=== PATIENT | female | born 1985 | race Caucasian/White ===

== ENCOUNTER 2016-07-11 06:15 | Inpatient (IN) | payer BC ==
[2016-07-11 07:53] VITALS: BMI 24.6
[2016-07-11] MEDS ORDERED: OXYTOCIN 10 UNIT/ML 1 ML VIAL IM PRN (07:55)
[2016-07-11] MEDS ORDERED: CARBOPROST TROMETHAMINE 250 MCG/ML 1 ML AMP IM PRN (07:55)
[2016-07-11] MEDS ORDERED: LIDOCAINE 1% (PF) 10 MG/ML (30 ML SDV) SQ PRN (07:55)
[2016-07-11] MEDS ORDERED: METHYLERGONOVINE 0.2 MG/ML 1 ML AMP IM PRN (07:55)
[2016-07-11] MEDS ORDERED: TERBUTALINE 1 MG/ML VIAL SQ PRN (07:55)
[2016-07-11 08:11] LABS: Basophils % (A) 0 %; CH 32.8; CHCM 34.9; Eosinophils % (A) 0 %; HCT 35.1 % (34.0-46.0); HDW 2.86; Luc # (Auto) 0.09; Luc % (Auto) 2; Lymphocytes % (A) 17 %; MCH 32.3 pg (25.0-35.0); MCHC 34.1 g/dL (31.0-37.0); MCV 94.7 fL (80.0-100.0); Mean Platelet Volume 7.6; Monocytes # (A) 0.4 k/uL (0-1.0); Monocytes % (A) 6 %; Neutrophils # (A) 4.4 k/uL (1.3-7.7); Neutrophils % (A) 75 %; RBC 3.71 m/uL (3.80-5.40); RDW 13.5 % (11.5-15.5); WBC 5.9 k/uL (3.8-10.6); WBC (Perox) 6.26
[2016-07-11] MEDS: OXYTOCIN 30 UNITS/500 ML NS 30 UNIT in SALINE 1 500ML.BAG IV SCH (08:33)
[2016-07-11] MEDS: LACTATED RINGERS 1,000 ML IV SCH ×2 (08:34→13:01)
--- NOTE | 2016-07-11 09:13 | P.HPOB ---
History of Present Illness H&P Date: 07/11/16 Chief Complaint: 39+ weeks intrauterine , elective induction The patient is a 31-year-old 4 para 3003 admitted at 39-3/7 weeks as established by last menstrual period and confirmed by 9 week ultrasound per she is admitted for elective induction of labor with all signs reassuring and a favorable cervix. Her has been uncomplicated and group B strep status is negative. Obstetrical history: 4 para [id number] term vaginal deliveries without complications. Current statistics are listed above. EDC of 2016 was established by last menstrual period and confirmed by 9 week ultrasound. Laboratory workup demonstrates a blood type of O+ with a negative antibody screen. Rubella status is immune. Remainder of laboratory workup was within normal limits. One hour Glucola was normal and group B strep status is negative. Gynecologic history: is unremarkable with no history of any infections to include STDs. Review of Systems Review of systems is confined to history of present illness. Past Medical History Past Medical History: No Reported History Additional Past Medical History / Comment(s): diet controlled hypoglycemia, borderline hypothyroidism History of Any Multi-Drug Resistant Organisms: None Reported Past Surgical History: Orthopedic Surgery Past Anesthesia/Blood Transfusion Reactions: Postoperative Nausea & Vomiting ( PONV) Past Psychological History: No Psychological Hx Reported Smoking Status: Never smoker - Past Family History Mother Family Medical History: No Reported History Medications and Allergies Home Medications Medication Instructions Recorded Confirmed Type Awd-Ytqx-Qhlox Acid 1 each PO DAILY 07/16/14 07/11/16 History [-U Capsule] Allergies Allergy/AdvReac Type Severity Reaction Status Date / Time No Known Allergies Allergy Verified 07/16/14 06:48 Exam - Vital Signs Vital signs: Vital Signs Temp Pulse Resp BP 07/11/16 07:42 97.6 F 88 18 115/80 Intake and Output 07/10/16 07/11/16 07/11/16 22:59 06:59 14:59 Other: Weight 63.049 kg Patient Weight 07/12/16 06:59 Weight 63.049 kg In general, this is a well-developed, well-nourished white female in no acute distress. Her heart has a regular rhythm and rate without murmur. Her lungs are clear to auscultation bilaterally in all vazquez. Her abdomen is gravid, nondistended, has normal active bowel sounds, is soft, nontender, and without any palpable masses aside from uterine fundus. Her extremities are without any cyanosis, clubbing, or edema and are nontender to palpation bilaterally. Digital cervical examination demonstrates her surgery C approximate 2+ centimeters dilated, 60% effaced, with the vertex in presentation at -2 station. Artificial rupture of membranes is carried out demonstrating clear fluid. Results Result Diagrams: 07/11/16 07:20 Abnormal Lab Results - Last 24 Hours (Table) 07/11/16 Range/Units 07:20 RBC 3.71 L (3.80-5.40) m/uL Assessment and Plan (1) Term Status: Acute Plan: The patient has been admitted for elective induction. She understands the risks and complications of an elective approach to induction including the potentially slightly increased risk for delivery. Pitocin augmentation has been started and she has undergone artificial rupture of membranes breech she will continue to have close maternal and surveillance and expectant management will be practiced. She is a good candidate for either IV or epidural analgesia, whichever she may choose.
[2016-07-11] MEDS ORDERED: BUTORPHANOL 1 MG/ML 1 ML VIAL IV PRN (09:14)
[2016-07-11] MEDS ORDERED: fentaNYL (PF) 50 MCG/ML 5 ML AMP ONE (13:06)
[2016-07-11] MEDS ORDERED: BUPIVACAINE (PF) 0.25% 30 ML VIAL ONE (13:06)
[2016-07-11] MEDS ORDERED: SODIUM CHLORIDE 0.9% 100 ML BAG ONE (13:06)
[2016-07-11] MEDS ORDERED: diphenhydrAMINE 50 MG/ML 1 ML VIAL IVP PRN ×2 (16:10)
[2016-07-11] MEDS ORDERED: diphenhydrAMINE 50 MG CAP PO PRN (16:10)
[2016-07-11] MEDS ORDERED: diphenhydrAMINE 25 MG CAP PO PRN (16:10)
[2016-07-11] MEDS ORDERED: SIMETHICONE 80 MG CHEWABLE PO PRN (16:10)
[2016-07-11] MEDS ORDERED: LANOLIN CREAM 5 GM TUBE TOPICAL PRN (16:10)
[2016-07-11] MEDS ORDERED: WITCH HAZEL 1 EACH MED..PAD TOPICAL PRN (16:10)
[2016-07-11] MEDS ORDERED: ACETAMINOPHEN TAB 325 MG TAB PO PRN (16:10)
[2016-07-11] MEDS ORDERED: BENZOCAINE/MENTHOL SPRAY 1 GM/SPRAY AEROSOL TOPICAL PRN (16:10)
[2016-07-11] MEDS ORDERED: HYDROCORTISONE 2.5% RECTAL CREAM 30 GM TUBE RECTAL PRN (16:10)
[2016-07-11] MEDS ORDERED: Acetaminophen-Codeine 300-30mg TAB PO PRN ×2 (16:10)
[2016-07-11] MEDS ORDERED: ZOLPIDEM 5 MG TAB PO PRN (16:10)
--- NOTE | 2016-07-11 16:14 | P.PROBDLV ---
Vaginal Delivery Note - . Vaginal Delivery Note: The patient is a 31-year-old 4 para 3003 admitted at 39-4/7 weeks by good dating parameters perches admitted for elective induction of labor with a favorable cervix and all signs reassuring. Her has been completely uncomplicated and group B strep status is negative. On labor and delivery, she had Pitocin augmentation started followed by artificial rupture of membranes demonstrating clear fluid. She had an epidural catheter placed for analgesia and was making relatively slow progress through the latent phase of labor. She then began to progress very quickly through the active phase of labor to complete and +1 station. She pushed over the course of approximately 3 contractions to a normal spontaneous vaginal delivery of a viable 7 lbs. 1 oz. baby boy with Apgars of 9 at 1 minute and 9 at 5 minutes delivered in the left occiput anterior position. The placenta was delivered spontaneously, intact, and grossly normal with a grossly normal, centrally inserted three-vessel cord. There were no lacerations of the perineum, vagina, or cervix. Estimated blood loss for the case is approximately 100 mL. There were no complications. Both mother and infant are resting comfortably in recovery.
[2016-07-12] MEDS: IBUPROFEN 600 MG TAB PO PRN ×2 (03:54→10:17)
[2016-07-12] MEDS: SENNOSIDES-DOCUSATE SODIUM 1 EACH TAB PO SCH ×3 (04:36→22:20)
--- NOTE | 2016-07-12 08:29 | P.PNOBGVD ---
Subjective - Subjective Patient reports: Reports appetite normal, Reports voiding normally, Reports pain well controlled, Reports ambulating normally [place]: doing well Objective - Latest Vital Signs Latest vital signs: Vital Signs Temp Pulse Resp BP Pulse Ox 07/12/16 08:10 85 16 99/70 07/12/16 04:00 98.0 F 74 14 106/67 07/12/16 00:00 97.5 F L 69 16 92/53 07/11/16 20:00 98.2 F 97 16 111/68 07/11/16 18:08 98.1 F 85 18 118/68 07/11/16 17:32 98.7 F 82 18 135/84 07/11/16 17:08 79 18 120/70 07/11/16 16:53 97.4 F L 85 18 122/74 07/11/16 16:37 98.1 F 81 18 125/74 07/11/16 16:21 97.1 F L 90 18 132/74 07/11/16 16:08 97.4 F L 86 18 129/70 98 Intake and Output 07/11/16 07/12/16 07/12/16 22:59 06:59 14:59 Output Total 1000 Balance -1000 Output: Urine 1000 Straight 500 Other: # Voids 1 1 - Exam Lungs: bilateral: normal Chest: Normal S1, Normal S2 Extremities: Present: normal Abdomen: Present: normal appearance, soft Uterus: Present: normal, firm (Uterine fundus as tonic and nontender below the umbilicus.) Assessment and Plan (1) Term Current Visit: Yes Status: Acute Code(s): Z34.80 - ENCOUNTER FOR SUPRVSN OF NORMAL , UNSP TRIMESTER SNOMED Code(s): 56772508 (2) Normal spontaneous vaginal delivery Narrative/Plan: Continue routine care. I would anticipate discharge home tomorrow pending no complications. Current Visit: Yes Status: Acute Code(s): O80 - ENCOUNTER FOR FULL-TERM UNCOMPLICATED DELIVERY SNOMED Code(s): 31338690
[2016-07-12] MEDS: OXYTOCIN 30 UNITS/500 ML NS 30 UNIT in SALINE 1 500ML.BAG IV SCH ×3 (20:12→22:21)
[2016-07-12] MEDS: LACTATED RINGERS 1,000 ML IV SCH (20:12)
--- NOTE | 2016-07-13 08:35 | P.DS ---
Providers Date of admission: 07/11/16 06:32 Expected date of discharge: 07/13/16 Attending physician: Maico Ferguson Primary care physician: Miller Hobbseldor - Discharge Diagnosis(es) (1) Term Current Visit: Yes Status: Acute (2) Normal spontaneous vaginal delivery Current Visit: Yes Status: Acute Hospital Course: The patient is a 31-year-old 4 para 3003 admitted at 39-3/7 weeks by good dating parameters for an elective induction with all signs reassuring. Her was uncomplicated and group B strep status is negative. On labor and delivery, she had Pitocin started followed by artificial rupture of membranes. She later had an epidural catheter placed for analgesia. She ultimately progressed to complete and then pushed fairly quickly to a normal spontaneous vaginal delivery of a viable 7 lbs. 1 oz. baby boy with Apgars of 9 at 1 minute and 9 at 5 minutes. Her post course was unremarkable with vital signs remaining stable and her temperature is afebrile throughout. She was deemed stable for discharge by day #2 and was discharged home to follow-up in the office in 6 weeks' time routinely. Discharge instructions included calling for any significantly increased bleeding or foul-smelling lochia, significantly increased fever abdominal pain, perineal complaints, breast complaints, or anything else that concerned her. She is additionally instructed to have nothing in vagina for at least 6 weeks time to include intercourse. She understood her instructions and agrees to follow up as noted above. Discharge medications included continued vitamins as she has opted to breast-feed. She otherwise was to use [id number] analgesic pain medications as needed. She was given a prescription for a dual electric breast pump for as needed use. Maternal blood type is O+ and rubella status is immune. Procedures: #1. Pitocin induction #2. Artificial rupture of membranes #3. Epidural analgesia #4. Normal spontaneous vaginal delivery Patient Condition at Discharge: Good Plan - Discharge Summary Discharge Medication List Pgc-Rdoz-Fupyb Acid [-U Capsule] 1 each PO DAILY 07/16/14 [ History] Follow up Appointment(s)/Referral(s): Maico Ferguson MD [STAFF PHYSICIAN] - 6 Weeks Discharge Disposition: HOME SELF-CARE
[2016-07-13] MEDS: SENNOSIDES-DOCUSATE SODIUM 1 EACH TAB PO SCH (08:40)
[2016-07-13 08:44] VITALS: BP 99/65; PULSE 78; RESP 20; TEMP 98.1
== END 2016-07-13 12:10 | disposition home or self-care (01) | DRG 775 ==
LOC: 4FBP 06:32
PROVIDERS: ADMIT Obstetrics & Gynecology; ATTEND Obstetrics & Gynecology
PROC: 10E0XZZ Delivery of Products of Conception, External Approach (ICD-10-PCS; principal; 2016-07-11)
PROC: 3E033VJ Introduction of Other Hormone into Peripheral Vein, Percutaneous Approach (ICD-10-PCS; 2016-07-11)
PROC: 10907ZC Drainage of Amniotic Fluid, Therapeutic from Products of Conception, Via Natural or Artificial Opening (ICD-10-PCS; 2016-07-11)
PROC: 00HU33Z Insertion of Infusion Device into Spinal Canal, Percutaneous Approach (ICD-10-PCS; 2016-07-11)
DX: O99.284 Endocrine, nutritional and metabolic diseases complicating childbirth (principal); E03.9 Hypothyroidism, unspecified; O75.89 Other specified complications of labor and delivery; E16.2 Hypoglycemia, unspecified; Z3A.39 39 weeks gestation of pregnancy; Z37.0 Single live birth
CPT/HCPCS: 85025; 88307

== ENCOUNTER → 2020-05-28 | Outpatient (CLI) | payer BC ==
--- NOTE | 2020-05-28 11:54 | MM ---
Reason for exam: clinical finding. Baseline mammogram. History: Family history of breast cancer in paternal grandmother at age 40. MG 3D Diag Mammo W/Cad TRENT Bilateral CC, MLO, and XCCL view(s) were taken. The breast tissue is extremely dense which could obscure a lesion on mammography. Finding: There is a typically benign 12 mm equal density (isodense), circumscribed round mass located 6 cm from the nipple. These results were verbally communicated with the patient and result sheet given to the patient on 05/28/20. ASSESSMENT: Incomplete: need additional imaging evaluation, BI-RAD 0 RECOMMENDATION: Ultrasound of the right breast.
== END | disposition home or self-care (01) ==
LOC: RADMAMWWP 10:09
PROVIDERS: ATTEND Obstetrics & Gynecology
DX: N63.11 Unspecified lump in the right breast, upper outer quadrant (principal); N64.4 Mastodynia
CPT/HCPCS: 77062; 77066

== ENCOUNTER → 2020-05-28 | Outpatient (CLI) | payer BC ==
--- NOTE | 2020-05-28 11:52 | USB ---
Reason for exam: clinical finding. History: Family history of breast cancer in paternal grandmother at age 40. Indicated problem(s): lump or thickening in the right breast. Physical Findings: Nurse Summary: 1.5cm movable nodule 10 o'clock, 0.5cm movable nodule 9 o'clock (nurse dw). US Breast Limited RT Left limited breast ultrasound including focal area of concern, retroareolar and axilla demonstrates a 9 x 5 x 5mm cystic lesion at 9 o'clock BB and a 14 x 8 x 13mm solid, vascular lesion at 10 o'clock BB, biopsy recommended. These results were verbally communicated with the patient and result sheet given to the patient on 05/28/20. ASSESSMENT: Suspicious, BI-RAD 4 RECOMMENDATION: Ultrasound core biopsy of the right breast. (10 o'clock) Called Dr. Ferguson's office with mammographic findings and has scheduled an appointment for the patient for 06/10/20 at 11:[address] Zacarias. Biopsy scheduled for at 12:00. PRELIMINARY REPORT CALLED AND FAXED TO DR. ZACARIAS ON 05/28/20.
== END | disposition home or self-care (01) ==
LOC: RADUSWWP 09:30
PROVIDERS: ATTEND Obstetrics & Gynecology
DX: N63.11 Unspecified lump in the right breast, upper outer quadrant (principal); N64.4 Mastodynia; R92.8 Other abnormal and inconclusive findings on diagnostic imaging of breast; Z80.3 Family history of malignant neoplasm of breast

== ENCOUNTER → 2020-06-01 | Day surgery (SDC) | payer BC ==
[2020-06-01 12:32] VITALS: RESP 16
[2020-06-01 13:13] VITALS: BP 119/83; PULSE 83; TEMP 98.4
--- NOTE | 2020-06-01 13:23 | USB ---
EXAMINATION TYPE: US biopsy breast VAD RT DATE OF EXAM: 06/01/2020 CLINICAL HISTORY: R92.8 abnormal mammogram. TECHNIQUE: Ultrasound guided core biopsy of right 10:00 breast. COMPARISON: NONE FINDINGS: The procedure of ultrasound guided core biopsy was explained to the patient. Benefits, alternatives, and risks were discussed. An informed consent was then obtained. The patient was placed in supine positioning for imaging and for the procedure. The overlying skin was prepped and draped in usual sterile fashion. Lidocaine buffered with bicarbonate was used as anesthetic into the skin and subcutaneous tissue up to area of concern in the right 10:00 breast. Under ultrasound guidance, a 12-gauge vacuum assisted biopsy gun device was used to obtain 3 core samples. Following this, a biopsy clip was left in lesion. The patient tolerated the procedure well without any immediate complication. The patient was kept in the radiology department for short stay after the procedure and then discharged home in stable condition. IMPRESSION: Successful, uncomplicated ultrasound guided core biopsy of area of concern in the right 10:00 breast, full pathology results to follow. Pathology Results: Benign RIGHT BREAST, 10:00, ULTRASOUND GUIDED CORE BIOPSY: Cellular fibroadenoma. Recommendation Follow up ultrasound of the right breast in 6 months. JOCELYND
--- NOTE | 2020-06-01 13:37 | MM ---
Reason for exam: additional evaluation requested from abnormal screening. Last mammogram was performed less than 1 month ago. History: Family history of breast cancer in paternal grandmother at age 40. MG Diagnostic Mammo RT Wo CAD CC and MLO view(s) were taken of the right breast. Prior study comparison: May 28, 2020, bilateral MG 3d diag mammo w/cad TRENT. ASSESSMENT: Post procedure mammogram for marker placement RECOMMENDATION: Ultrasound of the right breast in 6 months. PENDING PATHOLOGY RESULTS.
== END ==
LOC: RADUSWWP 12:09
PROVIDERS: ATTEND Student in an Organized Health Care Education/Training Program
DX: D24.1 Benign neoplasm of right breast (principal); Z80.3 Family history of malignant neoplasm of breast
CPT/HCPCS: 88305; 77065; 19083; A4648; J2001